=== PATIENT | male | born 1985 | race Caucasian/White ===

== ENCOUNTER 2018-10-10 12:23 | Emergency (ER) | payer OTHER ==
[2018-10-10] MEDS ORDERED: ceFAZolin 1 GM in Premix Bag 1 BAG IV ONE (13:31)
[2018-10-10] MEDS ORDERED: Bupivacaine 0.25%/EPINEPHrine 1:200,000 10 ML SDV INJECT ONE (13:31)
[2018-10-10] MEDS: Bupivacaine 0.25% 10 ML SDV ONE ×2 (14:08→15:08)
[2018-10-10] MEDS: Lidocaine 1% with EPINEPHrine 1:100,000 20 ML MDV ONE ×2 (14:08→15:08)
--- NOTE | 2018-10-10 14:19 | PCM.HP ---
H&P History of Present Illness - General Date of Service: 10/10/18 Admit Problem/Dx: right middle finger distal amputation Source of Information: Provider, RN History Limitations: Reports: No Limitations ([place] citizen language - interview in [place]. ) - History of Present Illness Initial Comments - Free Text/Narative: Right thumb distal amputation after the DIp joint. Discussed options with him and revision amputation is recommended. All questions answered. Onset of Symptoms: Reports: Today, Sudden Symptom Onset Date: 10/10/18 Symptom Onset Time: 09:30 Duration of Symptoms: Reports: Hour(s): Location: Reports: Upper Extremity, Right Quality: Reports: Ache, Throbbing Severity: Moderate Improves with: Reports: None Worsens with: Reports: None Context: Denies: Trauma Associated Symptoms: Reports: No Other Symptoms Right Finger-Middle Pain Score (Numeric/FACES): 6 - Related Data Allergies/Adverse Reactions: Allergies Allergy/AdvReac Type Severity Reaction Status Date / Time No Known Allergies Allergy Verified 10/10/18 12:38 Home Medications: Home Meds . [No Known Home Meds] 10/10/18 [History] Past Medical History - Past Health History Medical/Surgical History: Denies Medical/Surgical History Social & Family History - Family History Family Medical History: Noncontributory - Tobacco Use Smoking Status *Q: Current Some Day Smoker Years of Tobacco use: 16 Packs/Tins Daily: 0.1 - Recreational Drug Use Recreational Drug Use: No H&P Review of Systems - Review of Systems: Review Of Systems: See Below General: Reports: No Symptoms HEENT: Reports: No Symptoms Pulmonary: Reports: No Symptoms Musculoskeletal: Reports: Hand Pain Skin: Reports: Wound Neurological: Reports: No Symptoms Hematologic/Lymphatic: Reports: No Symptoms Immunologic: Reports: No Symptoms Exam - Exam Exam: See Below - Vital Signs Vital Signs: Last Vital Signs Temp 97.1 F 10/10/18 12:36 Pulse 77 10/10/18 12:36 Resp 18 10/10/18 12:36 BP 147/89 H 10/10/18 12:36 Pulse Ox 98 10/10/18 12:36 Weight: 178 lb 9.191 oz - Exam General: Alert, Oriented HEENT: EOMI Lungs: Normal Respiratory Effort Cardiovascular: Regular Rate Extremities: Normal Range of Motion Skin: Wound (right middle finger distal amputation. 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
[2018-10-10] MEDS ORDERED: Lidocaine 1% with EPINEPHrine 1:100,000 20 ML MDV INJECT ONE (14:24)
[2018-10-10] MEDS ORDERED: Bupivacaine 0.25% 10 ML SDV INJECT ONE (14:24)
--- NOTE | 2018-10-11 17:13 | PCM.OPNOTE ---
- General Post-Op/Procedure Note Date of Surgery/Procedure: 10/10/18 Operative Procedure(s): revision amputation of the right middle finger Pre Op Diagnosis: right middle finger transphalangeal amputation - distal phalanx Post-Op Diagnosis: Same Anesthesia Technique: Local Primary Surgeon: Mariann Finley Complications: None Condition: Good Free Text/Narrative:: after informed consent the area was anesthetized and prepped and draped. A finger tourniquet was used and the distal exposed distal phalanx was copiously irrigated and scrubbed. Once prepped with betadine, the distal phalanx was rongeured to a smooth finish leaving a wafer in place for the tendon insertions. The skin was still not sufficient for closure, so the distal middle phalanx was rongeured to reduce tension. Once appropriate skin was available for closure, the neurovascular bundles were identified and traction neurectomies performed bilaterally. The nail bed was obliterated. THe wound was irrigated and the skin closed overtop using the 5.0 chromic. It was dressed with xeroform and kerlex and he tolerated this well. All counts and needles correct at the end of the case. Follow up in 2 weeks, sooner with any issues or concern and wound care instructions provided.
== END 2018-10-10 16:05 | disposition home or self-care (01) ==
LOC: MW.ED 12:23
DX: S68.612A Complete traumatic transphalangeal amputation of right middle finger, initial encounter (principal); F17.210 Nicotine dependence, cigarettes, uncomplicated; W20.8XXA Other cause of strike by thrown, projected or falling object, initial encounter
CPT/HCPCS: 26951; 96365; 99283; J0690; J3490